=== PATIENT | female | born 1975 | race Caucasian/White ===

== ENCOUNTER 2017-08-16 23:06 | Inpatient (IN) | payer OTHER ==
[~2017-08-16] VITALS: Ht 162.6 cm; Wt 68.0 kg
--- NOTE | 2017-08-16 23:50 | NUR ---
PT A/OX4 BREATHING EFFORTLESSLY ON ROOM AIR, PT STATES SHE WAS SUPPOSED TO HAVE A D&C TODAY BUT WASNT ABLE TO MAKE IT, PT STATES SHE HAD AN 3 WEEKS SOFTWARE TEST ENGINEER AND WAS HAVING VAGINAL BLEEDING BUT IT STOPPED AND THEN STARTED TODAY AGAIN, IV PLACED SOFTWARE TEST ENGINEER BY EMS AND FLUIDS STARTED BY EMS SOFTWARE TEST ENGINEER FOR HYPOTENSION, PT ON MONITOR, IN MD KARTHIKEYAN MADE AWARE WILL CONTINUE TO MONITOR.
--- NOTE | 2017-08-16 23:53 | NUR ---
PATIENTS CALLED -RO[facility]
--- NOTE | 2017-08-17 00:23 | NUR ---
LAB AT BEDSIDE DRAWING
[2017-08-17 00:26] LABS: BASOPHILS % (AUTO) 0.2 % (0.0-2.0); EOSINOPHILS # (AUTO) 0.1 /CMM (0.0-0.7); EOSINOPHILS % (AUTO) 1.1 % (0.0-6.0); HEMATOCRIT 25 % (33-45); HEMOGLOBIN 8.8 g/dL (11.5-14.8); LYMPHOCYTES # (AUTO) 1.3 /CMM (0.8-4.8); MEAN CORPUSCULAR HEMOGLOBIN 30 PG (26.0-33.0); MEAN CORPUSCULAR HGB CONC 36 g/dl (31.0-36.0); MEAN CORPUSCULAR VOLUME 85 fL (82-100); MONOCYTES # (AUTO) 0.5 /CMM (0.1-1.30); NEUTROPHILS # (AUTO) 7.7 /CMM (1.8-8.9); NEUTROPHILS % (AUTO) 79.7 % (43.0-81.0); PLATELET COUNT (AUTO) 269 /CMM (150-450); RDW COEFFICIENT OF VARIATION 12.9 (11.5-15.0); RED BLOOD CELL COUNT(AUTO) 2.94 MIL/uL (4.0-5.2); WHITE BLOOD COUNT (AUTO) 9.6 K/uL (4.3-11.0)
[2017-08-17] MEDS ORDERED: IV NS 0.9% 1,000 ML BAG IV ONE ×2 (00:30→04:30)
[2017-08-17 00:43] LABS: CALCIUM, SERUM 8.1 mg/dL (8.5-10.1); CREATININE 0.7 mg/dL (0.6-1.3); POTASSIUM 4.3 mmol/L (3.5-5.1)
[2017-08-17 00:47] LABS: INR 1.04 (0.87-1.13)
[2017-08-17 01:07] LABS: BILIRUBIN,DIRECT 0.1 mg/dL (0.0-0.2); BILIRUBIN,TOTAL 0.4 mg/dL (0.2-1.0); TOTAL PROTEIN, SERUM 5.6 g/dL (6.4-8.2)
--- NOTE | 2017-08-17 03:29 | NUR ---
PT STATES SHE IS FEELING ALOT BETTER AND IS NOT DIZZY ANYMORE, PT BP DROPPED FROM WHAT IT WAS MD MADE AWARE AND 1 LITER OF FLUID ORDERED AND GIVEN PER MD REQUEST WILL CONTINUE TO MONITOR.
--- NOTE | 2017-08-17 03:58 | NUR ---
TELE 320-2
[2017-08-17] MEDS ORDERED: HYDROCODONE/APAP 5/325MG 1 EACH TABLET PO PRN ×2 (04:00→04:30)
[2017-08-17] MEDS ORDERED: Z GUARD REMEDY 2 OZ OINT TP PRN ×2 (04:00→04:30)
[2017-08-17] MEDS ORDERED: ZOLPIDEM TARTRATE 5 MG TABLET PO PRN ×2 (04:00→04:30)
[2017-08-17] MEDS ORDERED: MAGNESIUM HYDROXIDE 30 ML UDC PO PRN ×2 (04:00→04:30)
[2017-08-17] MEDS ORDERED: ACETAMINOPHEN 325 MG TABLET PO PRN ×2 (04:00→04:30)
[2017-08-17] MEDS ORDERED: ONDANSETRON HCL/PF 4 MG/2 ML VIAL IVP PRN ×2 (04:00→04:30)
[2017-08-17 05:00] VITALS: BP 94/53
[2017-08-17 05:08] VITALS: BP 94/53
--- NOTE | 2017-08-17 06:02 | NUR ---
ADMITTED AT 430 THIS AM ALERT AND ORIENTATED. SMILING STATES SHE HAS 4 CHILDREN AND SHE IS OKAY. STATED SHE ISN'T BLEEDING ANY MORE JUST A "TINY AMOUNT" SHE IS PALE HBG 8.8 SHE IS COLD BLANKETS GIVEN TO WARM HER UP, NPO STATUS ORDERED. MADE HER AWARE THAT IT IS PROTOCOL TO CALL THE NURSE FOR ASSIST TO GET OOB, CALL LIGHT GIVEN TO HER. DENIES AND CRAMPING
[2017-08-17 07:10] LABS: HEMOGLOBIN 7.1 g/dL (11.5-14.8)
--- NOTE | 2017-08-17 07:40 | NUR ---
RN OPEN NOTES RECEIVED REPORT FROM C[employer] MAKER NURSE. PATIENT IS IN BED. ALERT AND ORIENTED TO NAME, PLACE AND TIME. NO SIGNS AND SYMPTOMS OF DISTRESS. BED IN LOW POSITION, LOCKED AND TWO SIDE RAILS ARE UP FOR SAFETY. CALL LIGHT WITHIN REACH. WILL CONTINUE TO ASSESS AND MONITOR PATIENT
[2017-08-17 08:00] VITALS: BP 94/53
--- NOTE | 2017-08-17 10:20 | NUR ---
SPOKE WITH BOLA KING, REGARDING PATIENT H/H. PER BOLA ONE UNIT OF BLOOD TO BE GIVEN, HOWEVER, PATIENT REFUSING BLOOD TRANSFUSING. BOLA NOTIFIED AND H/H STAT ORDERED.
--- NOTE | 2017-08-17 13:30 | NUR ---
PRODUCT MARKETING DIRECTOR NOTES DISCHARGE ORDER RECEIVED AND CARRIED OUT. PATIENT IS LEAVING IN A STABLE CONDITION. PATIENT STATED THAT SHE FEELS BETTER AND WOULD LIKE TO GO HOME AFTER REFUSING BLOOD TRANSFUSION, ALL RISKS EXPLAINED THREE TIMES AND PATIENT VERBALIZED UNDERSTANDING. ALL PERSONAL BELONGING WITH PATIENT AT TIME OF DISCHARGE. ALL DISCHARGE INSTRUCTIONS EXPLAINED TO PATIENT AND AND BOTH VERBALIZED UNDERSTANDING. PATIENT ADVISED TO FOLLOW UP WITH HER OB-REHAB PHYSICIAN SOON POSSIBLE, PATIENT VERBALIZED THAT SHE ALREADY CALLED HER MD TO MAKE AN APPOINTMENT. PATIENT SIGNED BOTH BELONGING LIST FORM AND DISCHARGE INSTRUCTION FORMS; BOTH PLACED IN THE CHART. IV SITE REMOVED, ID BAND REMOVED. NO NEW CONCERNS UPON DISCHARGE. PATIENT PICKED UP BY HER VIA A PRIVATE CAR. ESCORTED TO MAIN LOBBY VIA WHEELCHAIR.
== END 2017-08-17 13:00 | disposition home or self-care (01) | DRG 564 ==
LOC: ER 23:08 → TELE 08-17 04:21 → MED 08-17 11:08
PROVIDERS: ADMIT Internal Medicine; ATTEND Internal Medicine
DX: O03.1 Delayed or excessive hemorrhage following incomplete spontaneous abortion (principal); E44.1 Mild protein-calorie malnutrition; D62 Acute posthemorrhagic anemia; O09.529 Supervision of elderly multigravida, unspecified trimester; F42.9 Obsessive-compulsive disorder, unspecified; E86.0 Dehydration
CPT/HCPCS: 36415; 71045-TC; 76856-TC; 80048-TC; 80076-TC; 84702-TC; 85025-TC; 85027-TC; 85730-TC; 86850-TC; 87081-TC; A4606; J7030; Z7610